=== PATIENT | male | born 1970 | race Caucasian/White ===

== ENCOUNTER 2016-09-20 07:10 | Emergency (ER) | payer BC ==
[2016-09-20 07:21] VITALS: BP 124/95
--- NOTE | 2016-09-20 08:22 | ERNOTE ---
Lower Extremity HPI - Narrative Date of Service: 09/20/16 - General Lower Extremities Pain: knee: right Time Seen by Provider: 09/20/16 07:56 Source: patient Exam Limitations: no limitations - Immun/Allergies/Home Medications Allergies/Adverse Reactions: Allergies Allergy/AdvReac Type Severity Reaction Status Date / Time No Known Allergies Allergy Verified 09/20/16 07:21 Home Medications: HOME MEDICATIONS Naproxen [Naprosyn] 500 mg PO BID #20 tablet 09/20/16 [Last Taken Unknown] Orphenadrine Citrate [Norflex] 100 mg PO Q12H #10 tablet.sa 09/20/16 [Last Taken Unknown] - History of Present Illness Narrative: Patient comes due to a pain on the R knee area that shoot like a current on extending the knee. Patient has no Hx of Tx or Fall. Patient has had R knee pain since a couple of months. Occurred: other - Months Method of Injury: Reports: other - No injury reported Reason for Fall: Reports: other - No recent falls Loss of Consciousness: Reports: no loss of consciousness Modifying Factors - (Improves): Reports: rest Modifying Factors - (Worsens): Reports: movement Associated Symptoms: Reports: sensory loss Other Injuries: Reports: none Prior Treament: Denies: recently seen Review of Systems - Review of Systems Constitutional: Present: no symptoms reported EYE: Present: no symptoms reported ENT: Present: no symptoms reported Respiratory: Present: no symptoms reported Cardiology: Present: no symptoms reported Gastrointestinal/Abdominal: Present: no symptoms reported Genitourinary: Present: no symptoms reported Musculoskeletal: Present: joint pain - Patient with R knee pain Skin: Present: no symptoms reported Neurological: Present: numbness, other - shooting pain on movement Endocrine: Present: no symptoms reported Hematologic/Lymphatic: Present: no symptoms reported Psych: Present: no symptoms reported - Patient's Past Medical History Patient History - Medical: No pertinent hx - Family History Mother Family History - Medical: Father Family History - Medical: History Unknown - Social History Living Situations: home Smoking Status: Current some day smoker Have you smoked in the past 12 months: Yes Do you dip or chew tobacco: Yes Alcohol Use: occasionally Drug Use: none Physical Exam - Physical Exam General Appearance: Present: wd/wn, alert, no apparent distress Eye Exam: Normal inspection: bilateral Ears, Nose, Throat: Present: normal ENT inspection Neck: Present: normal inspection Respiratory: Present: no respiratory distress, no accessory muscle use Cardiovascular/Chest: Present: regular rate, rhythm, no murmur, normal peripheral pulses Peripheral Pulses: N=norm/S=strong/W=weak/B=bound/A=absent: Dorsalis-pedis (R): Normal, Dorsalis-pedis (L): Normal Gastrointestinal/Abdominal: Present: nontender, nondistended Back Exam: Present: normal inspection, normal range of motion, no CVA tenderness , no vertebral tenderness Extremity Exam: Present: normal inspection, no edema, decreased range of motion - Patient has pain on R knee extension. No open wounds, no hematomas, no swelling, no calf tenderness, pelvis stable. Absent: pedal edema, calf tenderness, joint redness, joint swelling, extremity edema Neurological Exam: Present: alert, oriented, normal mood/affect, no motor/ sensory deficits Skin Exam: Present: normal color, warm/dry Lymphatic Exam: Present: no adenopathy ED Progress - Results and Orders Results and Orders: No labs or x-ray ordered for this patient. - Vital Signs Vital Signs: Vital Signs 09/20/16 07:10 Temperature 35.6 C L Pulse Rate 96 Respiratory 14 Rate Blood Pressure 124/95 O2 Sat by Pulse 99 Oximetry - Progress/Reassessment Chief Complaint: Lower Extremity Pain/ Injury Plan - Plan Plan: Patient is to follow up with his PCP. Patient will need to coordinate MRI of the R knee. At this point meniscal Vs. patelo-femoral syndrome is considered as the cause of patient's pain and condition. Departure Clinical Impression: Knee pain Qualifiers: Laterality: right Chronicity: chronic Qualified Code(s): M25.561 - Pain in right knee; G89.29 - Other chronic pain - Departure Disposition: Home self-care Condition: Stable Instructions: Knee Pain Additional Instructions: You will need further evaluation. MRI of the knee could be needed. Please see your Primary Care Provider. Prescriptions: Naproxen [Naprosyn] 500 mg PO BID #20 tablet Orphenadrine Citrate [Norflex] 100 mg PO Q12H #10 tablet.sa
== END 2016-09-20 09:05 | disposition home or self-care (01) ==
LOC: ER 07:10
DX: M25.561 Pain in right knee (principal); G89.29 Other chronic pain; F17.210 Nicotine dependence, cigarettes, uncomplicated